=== PATIENT | female | born 2000 | race Two or more races ===

== ENCOUNTER 2023-01-14 17:38 | Emergency (ER) | payer OTHER ==
[~2023-01-14] VITALS: Ht 165.1 cm; Wt 90.7 kg
[2023-01-14 18:47] LABS: HEMATOCRIT 37.9 % (36.0-45.00); HEMOGLOBIN 13.2 g/dL (12.0-15.00); MEAN CELL VOLUME 83.7 fL (80.00-100.00); MEAN CORPUSCULAR HEMOGLOBIN 29.2 pg (27.00-32.0); MEAN CORPUSCULAR HGB CONC 34.9 g/dl (32.0-36.0); PLATELET COUNT 299 K/uL (150-450); RED BLOOD COUNT 4.53 M/uL (4.00-6.00); RED CELL DISTRIBUTION WIDTH 14.4 % (11.5-14.5)
[2023-01-14 19:04] LABS: INR 1.04; PARTIAL THROMBOPLASTIN TIME 26.3 SECONDS (22.0-34.0); PROTHROMBIN TIME 10.9 SECONDS (9.0-11.5)
[2023-01-14 19:33] LABS: CREATININE SERUM 0.62 mg/dL (0.55-1.02); GFR 118.26; POTASSIUM 3.51 mEq/L (3.5-5.1)
[2023-01-14 19:40] LABS: URINE APPEARANCE Turbid; URINE BILIRRUBIN Negative (NEGATIVE); URINE BLOOD Negative; URINE COLOR Dark Yellow; URINE GLUCOSE Negative (NEGATIVE); URINE LEUKOCYTE Moderate; URINE NITRATE Negative; URINE PROTEIN 30 (NEGATIVE)
[2023-01-14 19:41] LABS: URINE RBC 19.2 uL (0.0-20.8); URINE WBC 431.3 uL (0.0-23.2)
[2023-01-14 20:03] LABS: URINE CRYSTALS FEW /HPF; URINE EPITHELIAL CELLS > 201.7 uL (0.0-38.8)
[2023-01-14 20:04] LABS: URINE MUCUS HEAVY
[2023-01-14] MEDS ORDERED: DUI500 PO (22:57)
== END 2023-01-14 23:32 | disposition home or self-care (01) ==
LOC: ER 17:39
PROVIDERS: General Practice
DX: O23.31 Infections of other parts of urinary tract in pregnancy, first trimester (principal); N39.0 Urinary tract infection, site not specified; Z3A.01 Less than 8 weeks gestation of pregnancy